=== PATIENT | female | born 1960 | race Caucasian/White ===

== ENCOUNTER 2021-02-02 10:07 | Emergency (ER) | payer BC, SELFPAY ==
[2021-02-02 10:12] VITALS: BP 165/80; PULSE 77; RESP 16; TEMP 37.1; O2SAT 98
--- NOTE | 2021-02-02 10:12 | ED.FEMALEGU ---
HPI - Female Genitourinary General Chief complaint: Urogenital-Female Stated complaint: lower back pain Time Seen by Provider: 02/02/21 10:12 Source: patient and RN notes reviewed History of Present Illness HPI Narrative: Patient is a 60-year-old female who presents the urgent care with complaints of low back pain. Patient states that she has a deep throbbing pain does not exacerbated with movement. Patient denies of any known blood in the urine, urinary frequency, urgency, dysuria, nausea, vomiting. Patient denies of any history of UTIs, pyelonephritis or kidney stones. Patient states she did have some urgency the other day to start using the bathroom however noticed that she did not have a lot of output. Patient states that symptom is not necessarily present at this time. Patient states it started approximately 2 to 3 days ago. No other acute complaints. No acute distress noted. Patient aware of the plan of care. Some parts of this dictation were generated by voice recognition software and may contain typographical and/or grammatical inaccuracies. Related Data Home Medications Medication Instructions Recorded Confirmed tramadol 50 mg PO PRN PRN 02/02/21 02/02/21 Allergies Allergy/AdvReac Type Severity Reaction Status Date / Time acetaminophen Allergy Unknown Nausea and Verified 11/17/18 10:07 Vomiting hydrocodone Allergy Unknown Nausea and Verified 11/17/18 10:07 Vomiting Review of Systems Review of Systems: Narrative: CONSTITUTIONAL: Denies fever, chills, or sweats. EYES: Denies visual changes, redness, or discharge. ENT: Denies rhinorrhea, congestion, sore throat, or otalgia. CARDIOVASCULAR: Denies chest pain, palpitations, or edema. RESPIRATORY: Denies cough or dyspnea. GASTROINTESTINAL: Denies abdominal pain, nausea, vomiting, or diarrhea. GENITOURINARY: Denies dysuria or hematuria. SKIN: Denies rash or itching. MUSCULOSKELETAL: Reports of low back pain NEUROLOGIC: Denies headache, numbness, or weakness. All other systems reviewed are negative, except as documented in HPI. PMFSH Social History Social History Gender identity (if verbalized by the patient): Female Comments At the time of my signature, I reviewed and agree with the nursing past medical, surgical, social, and family history. There is no relevant family history pertinent to the patient complaint. Exam Narrative: Exam Narrative: GENERAL: This is a well-nourished, well-developed patient, in no apparent distress. HEAD: normocephalic, atraumatic. EYES: PERRL. Sclera clear/white. Vision is grossly intact. EARS: External ears normal NOSE: External nose normal with no obvious nasal discharge, nares without redness, no rhinorrhea. THROAT: Mucous membranes moist NECK: Neck supple CARDIOVASCULAR: Regular rate and rhythm without murmurs, gallops, or rubs. RESPIRATORY: Clear to auscultation. Breath sounds equal bilaterally. No wheezes, rales, or rhonchi. GASTROINTESTINAL: Abdomen soft, non-tender, nondistended. Bowel sounds are active SKIN: warm, intact with no suspicious lesions or rash, good texture and turgor. NEURO: awake, alert, and oriented to person, place and time. There were no obvious focal neurologic abnormalities. EXTREMITIES: No clubbing, cyanosis, or edema. No joint tenderness, effusion, or edema noted. No calf tenderness. Negative Homans sign bilaterally. BACK: Negative bilateral CVA tenderness Course Vital Signs Vital signs: Vital Signs Temperature 98.8 F 02/02/21 10:12 Pulse Rate 77 02/02/21 10:12 Respiratory Rate 16 02/02/21 10:12 Blood Pressure 165/80 H 02/02/21 10:12 Pulse Oximetry 98 02/02/21 10:12 Temperature 98.8 F 02/02/21 10:12 Pulse Rate 77 02/02/21 10:12 Respiratory Rate 16 02/02/21 10:12 Blood Pressure 165/80 H 02/02/21 10:12 Pulse Oximetry 98 02/02/21 10:12 Reviewed-patient is informed that they may have pre-hypertension or hypertension based on a blood pressure reading
== END 2021-02-02 10:43 | disposition home or self-care (01) ==
PROVIDERS: Emergency Provider Nurse Practitioner Family
DX: M54.5 Low back pain (principal); R31.9 Hematuria, unspecified
CPT/HCPCS: 81003; 99212; G0463

== ENCOUNTER 2021-03-24 15:41 | Emergency (ER) | payer BC, SELFPAY ==
[2021-03-24 15:46] VITALS: BP 155/62; PULSE 83; RESP 18; TEMP 37.4; O2SAT 99
--- NOTE | 2021-03-24 15:52 | ED.FEMALEGU ---
HPI - Female Genitourinary General Chief complaint: Urogenital-Female Stated complaint: Poss UTI Time Seen by Provider: 03/24/21 16:06 Source: patient and RN notes reviewed Mode of arrival: ambulatory Limitations: no limitations History of Present Illness HPI Narrative: 60-year-old female presents concern for urinary tract infection. Reports yesterday she began having pressure with urination, burning, frequency. Reports she took an [id number] test at [facility] which indicated she had an infection and she began taking Azo. Reports her doctor instructed her to be seen and evaluated. She denies nausea, vomiting, diarrhea, back pain, fever. She last took Azo at 11 AM today MD elicited complaint: UTI Related Data Home Medications Medication Instructions Recorded Confirmed tramadol 50 mg PO PRN PRN 02/02/21 03/24/21 Allergies Allergy/AdvReac Type Severity Reaction Status Date / Time acetaminophen Allergy Unknown Nausea and Verified 11/17/18 10:07 Vomiting hydrocodone Allergy Unknown Nausea and Verified 11/17/18 10:07 Vomiting Review of Systems Review of Systems: Narrative: CONSTITUTIONAL: Denies malaise, chills, sweats, or fever. CARDIOVASCULAR: Denies chest pain, palpitations, or edema. RESPIRATORY: Denies cough or dyspnea. GASTROINTESTINAL: Denies abdominal pain, nausea, vomiting, diarrhea reports GENITOURINARY: Denies dysuria bladder pressure, urgency, frequency. Denies flank pain or hematuria. SKIN: Denies rash or itching. MUSCULOSKELETAL: Denies myalgia. NEUROLOGIC: Denies headache. All systems reviewed & are unremarkable except as noted in HPI and below PMFSH Social History Social History Gender identity (if verbalized by the patient): Female Comments At time of signature, agree with nursing past medical, surgical, social and family history. There is no relevant family history pertinent to the presenting complaint Exam Narrative: Exam Narrative: GENERAL: Well-appearing, well-nourished, and in no acute distress. HEAD: Normocephalic. EYES: PERRLA, conjunctivae clear. NECK: Supple. No lymphadenopathy CHEST: Clear to auscultation. No respiratory distress. HEART: Regular rate and rhythm. ABDOMEN: Soft, nontender upon palpation, nondistended, normal active bowel sounds, no palpable or pulsatile masses, no guarding. No CVA tenderness SKIN: Warm, dry, no rash. NEURO: Alert and oriented x3. PSYCH: Normal mood and affect Course Course Emergency Course: Patient is aware of diagnosis, understands and agrees to treatment plan. Anticipatory guidance given. Patient agrees to follow-up as directed and is aware of reasons to seek care at the emergency department. Portions of this record may have been created with voice recognition software Vital Signs Vital signs: Vital Signs Temperature 99.4 F 03/24/21 15:46 Pulse Rate 83 03/24/21 15:46 Respiratory Rate 18 03/24/21 15:46 Blood Pressure 155/62 H 03/24/21 15:46 Pulse Oximetry 99 03/24/21 15:46 Temperature 99.4 F 03/24/21 15:46 Pulse Rate 83 03/24/21 15:46 Respiratory Rate 18 03/24/21 15:46 Blood Pressure 155/62 H 03/24/21 15:46 Pulse Oximetry 99 03/24/21 15:46 Reviewed. MDM - Female Genitourinary MDM Narrative Medical decision making narrative: Exam findings and UA show no acute concerns or changes; patient is non-toxic appearing and is in no distress. Patient is appropriate for outpatient treatment and follow-up. Critical Care Time Critical Care Time Critical Care Time: No Discharge Plan Discharge Clinical Impression: Urinary tract infection Qualifiers: Urinary tract infection type: site unspecified Hematuria presence: with hematuria Qualified Code(s): N39.0 - Urinary tract infection, site not specified Patient Disposition: Home, Self-Care Condition: Stable Instructions: Antibiotic Form Additional Instructions: We will send a urine culture to the lab; if the culture identifies an organ
== END 2021-03-24 16:27 | disposition home or self-care (01) ==
PROVIDERS: Emergency Provider Nurse Practitioner
DX: N39.0 Urinary tract infection, site not specified (principal)
CPT/HCPCS: 81003; 87077; 87086; 87088; 87186; 99213; G0463

== ENCOUNTER 2021-03-27 08:28 | Emergency (ER) | payer BC, SELFPAY ==
[2021-03-27 08:35] VITALS: BP 158/63; PULSE 73; RESP 20; TEMP 37.2; O2SAT 99
--- NOTE | 2021-03-27 08:56 | ED.URI ---
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 with complaints of sore throat and nasal congestion, he states that her lower jaw is uncomfortable and her throat is painful to swallow. She started having symptoms 2 days ago they have worsened since they started. She was seen here on Tuesday for UTI and is on Macrobid currently was afraid to take any additional medication Related Data Home Medications Medication Instructions Recorded Confirmed tramadol 50 mg PO PRN PRN 02/02/21 03/24/21 Allergies Allergy/AdvReac Type Severity Reaction Status Date / Time acetaminophen Allergy Unknown Nausea and Verified 03/27/21 08:49 Vomiting hydrocodone Allergy Unknown Nausea and Verified 03/27/21 08:49 Vomiting Review of Systems Review of Systems: Narrative: CONSTITUTIONAL: Denies fever, chills, sweats. EYES: Denies visual changes, redness, discharge. ENT: Denies rhinorrhea, has congestion, has sore throat, bilateral otalgia. CARDIOVASCULAR: Denies chest pain, palpitations, edema. RESPIRATORY: Denies dyspnea, wheezing, cough GASTROINTESTINAL: Denies abdominal pain, nausea, vomiting, diarrhea. GENITOURINARY: Denies dysuria, hematuria, abnormal discharge SKIN: Denies rash or itching. NEUROLOGIC: Denies numbness, or focal weakness. PSYCHIATRIC: Denies anxiety or depression. [facility] Past Medical History Medical History Back pain Family History Family History Other Heart disease Hypertension Social History Social History (Updated 03/27/21 @ 09:06 by Zoila Hernandez CNP) Smoking status: Never smoker Alcohol intake: current Gender identity (if verbalized by the patient): Female Comments At time of signature, I agree with nursing past medical, surgical, social and family history. There is no relevant family history pertinent to the presenting complaint. Patient has high blood pressure at this visit I recommended follow-up with primary care within the week Exam Narrative: Exam Narrative: GENERAL: This is a well-nourished, well-developed patient, in mild distress. HEAD: normocephalic, atraumatic. EYES: Sclera clear/white. Vision is grossly intact. EARS: External ears normal, auditory canals erythema and without drainage, TMs normal without perforation. Hearing grossly intact. NOSE: External nose normal without nasal discharge, nares with redness, no rhinorrhea. THROAT: Mucous membranes moist, posterior pharynx erythema NECK: Neck supple, tender along trachea CARDIOVASCULAR: Regular rate and rhythm without murmurs, gallops, or rubs. RESPIRATORY: Clear to auscultation. Breath sounds equal bilaterally. No wheezes, rales, or rhonchi. GASTROINTESTINAL: Abdomen soft, SKIN: warm, intact with no suspicious lesions or rash, good texture and turgor. NEURO: awake, alert, and oriented to person, place and time. There were no obvious focal neurologic abnormalities. Steady gait EXTREMITIES: Normal range of motion. BACK: Nontender without deformity Course Course Emergency Course: Patient comes here with sore throat and congestion cough that started 2 days ago and is worsening Rapid strep is negative Patient states that it is hard for her to swallow--started on prednisone and amoxicillin Vital Signs Vital signs: Vital Signs Temperature 99 F 03/27/21 08:35 Pulse Rate 73 03/27/21 08:35 Respiratory Rate 20 03/27/21 08:35 Blood Pressure 158/63 H 03/27/21 08:35 Pulse Oximetry 99 03/27/21 08:35 Temperature 99 F 03/27/21 08:35 Pulse Rate 73 03/27/21 08:35 Respir
== END 2021-03-27 09:38 | disposition home or self-care (01) ==
PROVIDERS: Emergency Provider Nurse Practitioner
DX: J02.9 Acute pharyngitis, unspecified (principal)
CPT/HCPCS: 87081; 87880; 99213; G0463

== ENCOUNTER 2022-10-18 07:57 | Emergency (ER) | payer BC, SELFPAY ==
[2022-10-18 07:59] VITALS: BP 156/73; RESP 18; TEMP 36.4; O2SAT 98
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
--- NOTE | 2022-10-18 08:09 | ECG_ITS ---
Measurements Intervals [place] Rate: 72 P: 71 [place]: 164 QRS: 41 QRSD: 91 T: 77 QT: 410 QTc: 449 Interpretive Statements SINUS RHYTHM BASELINE ARTIFACT- I, II, III, AVR, AVL, AVF NORMAL ECG NO PREVIOUS ECG AVAILABLE FOR COMPARISON Electronically Signed On 10-18-2022 8:39:01 YACHT MASTER by Carlo Mcgrath D.O.
[2022-10-18 08:13] VITALS: BP 156/73; PULSE 74; RESP 16; TEMP 36.4; O2SAT 99
[2022-10-18] MEDS: SODIUM CHLORIDE 0.9% IV 1,000 ML 999 ML IV CONT ×2 (08:33)
[2022-10-18] MEDS: METOCLOPRAMIDE HCL INJ 10 MG/2 ML VIAL IV PUSH (08:34)
[2022-10-18] MEDS: MECLIZINE HCL 25 MG TABLET 50 MG PO (08:34)
[2022-10-18 08:37] LABS: Basophils Absolute Auto 0.02 K/mm3 (0.00-0.10); Basophils Percent Auto 0.2 % (0.0-1.0); Eosinophils Absolute Auto 0.05 K/mm3 (0.02-0.50); Eosinophils Percent Auto 0.6 % (1.0-6.0); Hematocrit 37.7 % (35.0-49.0); Hemoglobin 12.8 g/dL (12.0-15.0); Immature Granulocyte Absolute 0.05 K/mm3 (0.00-0.00); Immature Granulocyte Percent A 0.6 % (0.0-0.0); Lymphocytes Absolute Auto 1.24 K/mm3 (1.10-4.50); Lymphocytes Percent Auto 14.9 % (18.0-42.0); Mean Corpuscular Hemoglobin 31.1 pg (27.0-31.0); Mean Corpuscular Volume 91.5 fL (78.0-102.0); Mean Platelet Volume 9.5 fl (9.2-11.8); Monocytes Absolute Auto 0.56 K/mm3 (0.10-0.90); Monocytes Percent Auto 6.7 % (2.0-11.0); Neutrophils Absolute Auto 6.4 K/mm3 (1.7-7.2); Platelet Count Result 214 K/mm3 (150-420); Red Blood Count 4.12 M/mm3 (4.20-5.40); Red Cell Distribution Width 12.2 % (11.6-14.4); White Blood Count 8.3 K/mm3 (4.8-10.8)
[2022-10-18 08:38] LABS: Base Excess ABG -1.1 mmol/L (0-2); HCO3 ABG 23.7 mmol/L (23-29); Oxygen Content ABG 18.8 %vol (16.0-22.0); Oxygen Saturation ABG 95.8 % (95-97); Oxyhemoglobin 95.4 % (94-100); PCO2 ABG 40.1 mmHg (35-45); PO2 ABG 84.2 mmHg (80-90); pH ABG 7.39 (7.35-7.45)
[2022-10-18 08:39] LABS: Device ROOM AIR; Modified Allen's Test Pass; Site Drawn RIGHT RADIAL
[2022-10-18 08:57] LABS: Alanine Aminotransferase 18 U/L (14-59); Albumin Level 3.5 g/dL (3.4-5.0); Alkaline Phosphatase 59 U/L (46-116); Anion Gap 10 mmol/L (8-16); Aspartate Amino Transferase 13 U/L (15-37); Bilirubin,Total 0.3 mg/dL (0.00-1.00); Blood Urea Nitrogen 14 mg/dL (7-18); Calcium 8.4 mg/dL (8.5-10.1); Carbon Dioxide 27 mmol/L (21-32); Chloride 103 mmol/L (98-108); Estimated CRCL calculation 69 ml/min; Estimated Glomerular Filt Rate > 60; Glucose 126 mg/dL (70-99); Magnesium 1.8 mg/dL (1.8-2.4); Osmolality Calculated 292 mOsm/kg (285-295); Potassium 3.5 mmol/L (3.5-5.1); Sodium 140 mmol/L (136-145); Total Protein 6.9 g/dL (6.4-8.2)
--- NOTE | 2022-10-18 08:58 | PC.NURSE ---
104.5 troponin per lab. erp notified.
[2022-10-18 08:59] LABS: Ethanol < 3 mg/dL (0-6); Troponin I 104.5 ng/L (0.00-60.4)
[2022-10-18 09:15] LABS: Lactic Acid Reflex 2.3 mmol/L (0.4-2.0)
[2022-10-18 09:22] LABS: Add Urine Microscopic? YES; Appearance Urine Clear (Clear); Bilirubin Urine Negative (Negative); Blood Urine Trace-Intact (Negative); Glucose Urine UA Negative (Negative); Ketones Urine Negative (Negative); Leukocyte Esterase Ur Negative LEU/UL (Negative); Nitrate Urine Negative (Negative); Protein Urine Negative (Negative); Specific Grav Ur 1.015 (1.010-1.020); Urobilinogen Urine 0.2 mg/dL (0.2-1.0)
[2022-10-18 09:26] LABS: Amphetamine Screen Urine Negative (Negative); Barbiturate Screen Urine Negative (Negative); Benzodiazepines Screen Urine Negative (Negative); Cannabinoid Screen Urine Negative (Negative); Cocaine Screen Urine Negative (Negative); Methadone Screen Urine Negative (Negative); Opiate Screen Urine Negative (Negative); Phencyclidine Screen Urine Negative (Negative)
[2022-10-18 09:44] LABS: Color Urine Yellow (Yellow)
[2022-10-18 09:45] LABS: Bacteria Urine Trace /hpf; RBC Urine 0-2 /hpf (0-2); Squamous Epithelial Cell Urine Moderate /hpf (Few); WBC Urine None seen /hpf (0-3)
[2022-10-18 09:53] VITALS: O2SAT 100
[2022-10-18 10:09] VITALS: BP 142/77; BP 152/67; BP 153/69; PULSE 81; PULSE 82; PULSE 88
[2022-10-18] MEDS: SODIUM CHLORIDE 0.9% IV 1,000 ML 250 ML IV CONT (10:17)
[2022-10-18] MEDS: ONDANSETRON INJ 4 MG/2 ML VIAL IV PUSH (10:19)
[2022-10-18] MEDS: PROCHLORPERAZINE EDISYLATE 10 MG/2 ML VIAL IV PUSH (10:20)
[2022-10-18 10:50] LABS: Venous Carboxyhemoglobin 0.9 %THb (0-2.0)
[2022-10-18 11:35] LABS: Reflex Lactic Acid Yes or No Add Lactic
[2022-10-18 11:45] LABS: Troponin I 406.7 ng/L (0.00-60.4)
--- NOTE | 2022-10-18 11:49 | ECG_ITS ---
Measurements Intervals [place] Rate: 86 P: 40 [place]: 170 QRS: -26 QRSD: 85 T: 24 QT: 395 QTc: 473 Interpretive Statements SINUS RHYTHM DELAYED PRECORDIAL R/S TRANSITION BASELINE ARTIFACT- I, II, III, AVF BORDERLINE ECG COMPARED TO ECG 10/18/2022 08:21:36 NO SIGNIFICANT CHANGES Electronically Signed On 10-18-2022 12:02:25 INVESTMENT SPECIALIST by Carlo Mcgrath D.O.
--- NOTE | 2022-10-18 11:59 | PC.NURSE ---
patient updated on [facility] being full, states she would be willing to go to [facility] if they have openings sooner.
[2022-10-18 12:16] VITALS: PULSE 92
[2022-10-18] MEDS: METOPROLOL TARTRATE INJ 5 MG/5 ML VIAL IV PUSH (12:16)
[2022-10-18] MEDS: ASPIRIN 81 MG CHEWABLE TABLET 324 MG PO (12:16)
[2022-10-18 12:21] LABS: NT Pro B Type Natriuretic Pept 173 pg/mL (0-125)
[2022-10-18 12:21] LABS: Lactic Acid 1.3 mmol/L (0.4-2.0)
[2022-10-18 12:27] LABS: SARS-CoV-2 Ag Negative (Negative)
[2022-10-18 15:17] VITALS: BP 122/55; PULSE 76; RESP 16; TEMP 36.8; O2SAT 100
== END 2022-10-18 15:17 | disposition short-term general hospital (02) ==
PROVIDERS: Emergency Provider Emergency Medicine
DX: I21.4 Non-ST elevation (NSTEMI) myocardial infarction (principal); R42 Dizziness and giddiness; R11.2 Nausea with vomiting, unspecified; T59.91XA Toxic effect of unspecified gases, fumes and vapors, accidental (unintentional), initial encounter; Z20.822 Contact with and (suspected) exposure to COVID-19
CPT/HCPCS: 36415; 36600; 80053; 80307; 81001; 82375; 82805; 83605; 83735; 83880; 84484; 85025; 87426; 93005; 96361; 96374; 96375; 96376; 99285; A9270; C9803; J0780; J2405; J2765; J7030

== ENCOUNTER 2024-12-21 11:30 | Emergency (ER) | payer OTHER, MEDICARE, SELFPAY ==
--- NOTE | ~2024-12-21 | XR_ITS ---
Left elbow Technique: AP, oblique, and lateral views were obtained. Clinical History: Pain Findings: Displacement of the fat pads is present, for bowel joint effusion. Suspected nondisplaced r adial head fracture noted. No dislocation. Impression: Suspected nondisplaced radial head fracture with associated elbow joint effusion. Reviewed, dictated and finalized at [facility]. Impression: Suspected nondisplaced radial head fracture with associated elbow joint effusio n.
[2024-12-21 11:50] VITALS: BP 135/52; PULSE 74; RESP 16; TEMP 36.8; O2SAT 97
--- NOTE | 2024-12-21 12:08 | ED.UPPEXIN ---
HPI - Extremity Injury (Upper) General Chief Complaint: Extremity Injury, Upper Stated Complaint: left arm injury Time Seen by Provider: 12/21/24 12:08 Source: patient Mode of arrival: ambulatory Limitations: no limitations History of Present Illness HPI narrative: 64 yo F presents with c/o L elbow pain for 5 days. Fell Tuesday on outstretched arm. decreased ROM due to pain. Swelling and bruising noted. distal NV intact. All systems reviewed and negative except as noted above. Related Data Home Medications ?Medication ?Instructions ?Recorded ?Confirmed ?Last Taken ?Type tramadol 50 mg tablet 50 mg PO PRN PRN Pain 02/02/21 10/18/22 Unknown History lisinopril 5 mg tablet mg 12/21/24 Unknown History Allergies Allergy/AdvReac Type Severity Reaction Status Date / Time acetaminophen Allergy Unknown Nausea and Verified 10/18/22 08:11 Vomiting hydrocodone Allergy Unknown Nausea and Verified 10/18/22 08:11 Vomiting morphine AdvReac Intermediate vomiting Verified 12/21/24 11:54 Review of Systems Review of Systems: CONSTITUTIONAL: Denies fever, chills, or sweats. EYES: Denies visual changes, redness, or discharge. ENT: Denies rhinorrhea, congestion, sore throat, or otalgia. CARDIOVASCULAR: Denies chest pain, palpitations, or edema. RESPIRATORY: Denies cough or dyspnea. GASTROINTESTINAL: Denies abdominal pain, nausea, vomiting, or diarrhea. GENITOURINARY: Denies dysuria or hematuria. SKIN: Denies rash or itching. MUSCULOSKELETAL: Denies back pain, or myalgia. Reports left elbow pain and swelling NEUROLOGIC: Denies headache, numbness, or weakness. PSYCHIATRIC: Denies anxiety or depression. All other systems reviewed are negative, except as documented in HPI. COUNT INCLUDES THE [facility] Past Medical History Medical History Back pain Family History Family History Other Heart disease Hypertension Social History Social History (Updated 03/27/21 @ 09:06 by Zoila Hernandez, JARROD) Smoking status: Never smoker Alcohol intake: current Gender identity (if verbalized by the patient): Female Comments At time of signature, agree with nursing past medical, surgical, social and family history. There is no relevant family history pertinent to the presenting complaint. Exam Narrative: GENERAL: This is a well-nourished, well-developed patient, in no apparent distress. HEAD: normocephalic, atraumatic. EYES: PERRL. Sclera clear/white. Vision is grossly intact. EARS: External ears normal NOSE: External nose normal NECK: Neck supple, non-tender without lymphadenopathy, masses or thyromegaly. CARDIOVASCULAR: Regular rate and rhythm without murmurs, gallops, or rubs. RESPIRATORY: Clear to auscultation. Breath sounds equal bilaterally. No wheezes, rales, or rhonchi. SKIN: warm, Dry, intact with no suspicious lesions or rash, good texture and turgor. NEURO: awake, alert, and oriented to person, place and time. There were no obvious focal neurologic abnormalities. EXTREMITIES: mild swelling noted, bruise to lateral aspect, tenderness to radial head, decreased flexion due to pain. Course Course Level of Care: Express Care Visit Vital Signs Vital signs: Vital Signs Temperature 36.8 C 12/21/24 11:50 Pulse Rate 74 12/21/24 11:50 Respiratory Rate 16 12/21/24 11:50 Blood Pressure 135/52 L 12/21/24 11:50 Pulse Oximetry 97 12/21/24 11:50 Oxygen Delivery Room Air 12/21/24 11:50 Temperature 36.8 C 12/21/24 11:50 Pulse Rate 74 12/21/24 11:50 Respiratory Rate 16 12/21/24 11:50 Blood Pressure 135/52 L 12/21/24 11:50 Pulse Oximetry 97 12/21/24 11:50 Oxygen Delivery Room Air 12/21/24 11:50 reviewed MDM - Extremity Injury (Upper) MDM Narrative Medical decision making narrative: suspected fracture to left radial head. Patient placed in sling. Refer to orthopedics for follow-up. Please be advised this is a medical document. It is intended for [id number] communication. It is written in medical language and may contain unfamiliar abbreviations or verbiage. Medical documents are intended to carry relevant information, facts as evident, and the clinical opinion of the practitioner at the time of the encounter. This report may have been done utilizing a voice recognition system. Attempts have been made to correct errors. However, there may be uncorrected grammatical, spelling, and recognition errors present. The file time of this note does not necessarily represent the time of service. Imaging Data My impression: agree with radiologist Radiologist's impression: Left elbow Technique: AP, oblique, and lateral views were obtained. Clinical History: Pain Findings: Displacement of the fat pads is present, for bowel joint effusion. Suspected nondisplaced radial head fracture noted. No dislocation. Impression: Suspected nondisplaced radial head fracture with associated elbow joint effusion. Discharge Plan Discharge Clinical Impression: Closed fracture of head of left radius Patient Disposition: Home, Self-Care Condition: Stable Instructions: Elbow Fracture (ED) Additional Instructions: the x-ray of your left elbow shows a possible fracture to your radial head. Take Tylenol or ibuprofen every 6-8 hours to treat pain. Wear sling for comfort. Remove when sleeping. Apply ice as needed for pain. Follow-up with online merchandising specialist for further treatment of her fracture. Patient Language: Amharic Prescriptions: No Action tramadol 50 mg tablet 50 mg PO PRN PRN (Reason: Pain) lisinopril 5 mg tablet Follow-up/Referrals: Husam Krause MD [Physician] - (schedule follow up appointment with radiology) UNKNOWN,DOCTOR [Primary Care Provider] - Time of Disposition: 12:51
--- OUTSIDE RECORDS SUMMARY | 2024-12-21 12:44 | XMS_ITS | Clinical Summary ---
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 Role Phone Eleonora Montana MD Primary Care Provider Rani Ballard RN Unavailable Unavailab le Allergies Active Allergy Reactions Criticality Noted Date Comments Hydrocodone-Acetaminophen Nausea & Vomiting Low Morphine Nausea & Vomiting Low Medications pantoprazole DR (PROTONIX) 40 mg EC tablet Take 1 tablet (40 mg total) by mouth daily 8 Active traMADol (ULTRAM) 50 mg tablet Take 1 tablet (50 mg total) by mouth daily as needed 8 Active lisinopriL (PRINIVIL,ZESTRI L) 5 mg tablet Take 1 tablet (5 mg total) by mouth daily 4 Active albuterol HFA (PROVENTIL HFA,VENTOLIN HFA,PROAIR HFA) 90 mcg/actuation inhalerIndicatio ns:Lower respiratory infection (e.g., bronchitis, pneumonia, pneumonitis, pulmonitis) Inhale 2 puffs every 6 (six) hours as needed for wheezing or shortness of breath 1 each 4 Active azithromycin (ZITHROMAX) 250 mg tabletIndication s:Lower respiratory infection (e.g., bronchitis, pneumonia, pneumonitis, pulmonitis) Take 2 tablets the first day, then 1 tablet daily for 4 days. 6 tablet 4 Active benzonatate (TESSALON) 200 mg capsuleIndicatio ns:Lower respiratory infection (e.g., bronchitis, pneumonia, pneumonitis, pulmonitis) Take 1 capsule (200 mg total) by mouth 3 (three) times a day as needed for cough 30 capsule 4 Active Active Problems No known active problems Surgical History Surgery Date Site/Laterality Comments VEIN LIGATION AND STRIPPING Right Approx 15 years ago Medical History Medical History Date Comments GERD (gastroesophageal reflux disease) Peptic ulceration Arthritis Spine Family History Medical History Relation Name Comments Other Mother Cause of heart attack.; Relation Name Status Comments Mother Social History Tobacco Use Types Packs/Day Years Used Date Smoking Tobacco: Never Smokeless Tobacco: Never Alcohol Use Standard Drinks/Week Comments No 0 (1 standard drink = 0.6 oz pur e alcohol) Comments No Sex and Gender Information Value Date Recorded Sex Assigned at Not on file 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 Gender Identity Not on file Sexual Orientation Not on file Obstetrics History Last Filed Vital Signs Vital Sign Reading Time Taken Comments Blood Pressure 168/89 04/08/2024 5:53 PM CDT Pulse 99 04/08/2024 5:52 PM CDT Temperature 36.8 C (98.2 F) 04/08/2024 5:52 PM CDT Respiratory Rate 20 04/08/2024 5:52 PM CDT Oxygen Saturation 96% 04/08/2024 5:52 PM CDT Inhaled Oxygen Concentration - - Weight 74.8 kg (165 lb) 04/08/2024 5:52 PM CDT Height 165.1 cm (5' 5 ) 04/08/2024 5:52 PM CDT Body Mass Index 27.46 04/08/2024 5:52 PM CDT Plan of Treatment Health Maintenance Due Date Last Done Comments Breast Cancer Screening-Mammogram 1959 Cervical Cancer Screening 1959 Colon Cancer Screening-Colonoscopy 1959 Fall Risk Assessment 1959 Hepatitis C Screening 1959 Osteoporosis Screening-Bone Density Scan 1959 Hepatitis B Screening 1977 Pneumococcal vaccine 65+ (1 of 1 - PCV) 2009 Zoster Vaccine (1 of 2) 2009 Depression Screening 10/31/2018 10/31/2017, 10/31/19 18 Covid-19 Vaccine (3 - season) 06/03/202406/2021, 02/18/2021 Influenza Vaccine (#1) 2024 , 07/07/2022, 07/29/2017 Well Visit 65+ 2024 DTaP/Tdap/Td Vaccine (2 - Td or Tdap) 07/12/203307/2023 Goals Goal Patient Goal Type Associated Problems Recent Progress Patient-Stated? 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 Insurance [facility] CHOICE PLUS Care Teams Machine Paint Mixer Relationship Specialty Start Date End Date Eleonora Montana MD [address] [place] [address] [address] [place] [address] PCP - General 02/13/14 Rani Ballard, RN Registered Nurse Pain Management 10/31/17
--- OUTSIDE RECORDS SUMMARY | 2024-12-21 12:44 | XMS_ITS | Referral Summary ---
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 Insurance [facility] CHOICE PLUS [facility] HMO/PPO Address: [facility] [id number] [place] [id number] Care Teams Manager Spa Relationship Specialty Start Date End Date Eleonora Montana MD [address] [facility] [address] [place] [address] PCP - General 02/13/14 Rani Ballard, RN Registered Nurse Pain Management 10/31/17
== END 2024-12-21 12:57 | disposition home or self-care (01) ==
PROVIDERS: Emergency Provider Nurse Practitioner Family
DX: S52.122A Displaced fracture of head of left radius, initial encounter for closed fracture (principal); W19.XXXA Unspecified fall, initial encounter
CPT/HCPCS: 73080; 99214; A4565; G0463